=== PATIENT | male | born 1955 | race Caucasian/White ===

== ENCOUNTER 2017-02-21 18:01 | Emergency (ER) | payer OTHER ==
--- NOTE | 2017-02-21 18:23 | ED Physician Documentation ---
PD HPI UPPER EXT INJURY - Stated complaint Stated Complaint: L SHOULDER PAIN - Chief complaint Chief Complaint: Ext Problem - History obtained from History obtained from: Patient, Family - History of Present Illness Location: Left, Shoulder Type of injury: Fall (off ladder) Where injury occurred: Home Timing - onset: Today Timing - duration: Hours (1) Timing - details: Abrupt onset Pain level max: 7 Pain level now: 5 Improved by: Rest, Ice, Immobilization Worsened by: Moving, Palpating Associated symptoms: No: Weakness, Numbness, Tingling, Swelling Contributing factors: No: Anticoagulated, Prior ortho surgery Similar symptoms before: Has not had sx before Recently seen: Not recently seen Review of Systems Constitutional: denies: Fever, Chills GI: denies: Nausea, Vomiting Skin: denies: Rash Musculoskeletal: denies: Neck pain, Back pain Neurologic: denies: Focal weakness, Numbness, Confused, Altered mental status, Headache, Head injury PD PAST MEDICAL HISTORY - Past Medical History Past Medical History: No - Past Surgical History Past Surgical History: No - Present Medications Home Medications: Ambulatory Orders Medication Instructions Recorded Confirmed Hydrocodone/Acetaminophen 1 - 2 each PO Q6H PRN #14 tablet 02/21/17 [Hydrocodon-Acetaminophen 5-325] Ibuprofen [Motrin] 800 mg PO Q8H PRN #30 tablet 02/21/17 - Allergies Allergies/Adverse Reactions: Allergies Allergy/AdvReac Type Severity Reaction Status Date / Time No Known Drug Allergies Allergy Verified 02/21/17 18:11 - Living Situation Living Situation: reports: With family Living Arrangement: reports: At home - Social History Does the pt have substance abuse?: No - Family History Family history: reports: Non contributory PD ED PE NORMAL - Vitals Vital signs reviewed: Yes - General General: Alert and oriented X 3, No acute distress - Derm Derm: Warm and dry - Extremities Extremities: Other (L shoulder - no gross deformity. NVI. axillary nerve intact. Limited ROM 2/2 pain) - Neuro Neuro: Alert and oriented X 3 - Psych Psych: Normal mood, Normal affect Results - Vitals Vitals: Vital Signs - 24 hr 02/21/17 02/21/17 18:08 19:19 Temperature 36.6 C Heart Rate 69 71 Respiratory 14 16 Rate Blood Pressure 131/80 H 129/74 O2 Saturation 100 98 Oxygen O2 Source Room air - Rads (name of study) L shoulder xray Radiology: Prelim report reviewed, EMP read contemporaneously, See rad report ( Displaced acromion tip fracture. ) PD MEDICAL DECISION MAKING - ED course Complexity details: reviewed results, re-evaluated patient, considered differential, d/w patient, d/w family, d/w remediation bioanalytics consultant ED course: Patient is a 61-year-old male who presents to the emergency department after a fall onto the left shoulder. Appears to have a displaced acromium tip fracture. I discussed the case with Dr. Oliva, orthopedics who recommends a sling and follow-up in clinic in 1 week. Neurovascularly intact including the axillary nerve. Patient and family counseled regarding signs and symptoms for which I believe and urgent re-evaluation would be necessary. Patient with good understanding of and agreement to plan and is comfortable going home at this time This document was made in part using voice recognition software. While efforts are made to proofread this document, sound alike and grammatical errors may occur. Departure - Departure Disposition: 01 Home, Self Care Clinical Impression: Acromial fracture Qualifiers: Encounter type: initial encounter Fracture type: closed Fracture alignment: displaced Laterality: left Qualified Code(s): S42.122A - Displaced fracture of acromial process, left shoulder, initial encounter for closed fracture Condition: Good Instructions: ED Fx Upper Ext Follow-Up: [facility] [Provider Group] - Within 1 week Prescriptions: Hydrocodone/Acetaminophen [Hydrocodon-Acetaminophen 5-325] 1 - 2 each PO Q6H PRN #14 tablet PRN Reason: pain Ibuprofen [Motrin] 800 mg PO Q8H PRN #30 tablet PRN Reason: PAIN &/OR FEVER Comments: Return if you worsen. Keep the sling on until released by orthopedics. Do not drink alcohol or drive while on narcotic pain medicine. Note that many narcotic pain relievers also contain tylenol/acetaminophen. Please ensure that your total dose of acetaminophen from all sources does not exceed 3 grams (3000mg) per day. You may constipated on this medication, take a stool softener such as "Colace" twice a day while you are on it. Also recommend a [id number] laxative such as senna or MiraLAX any day that you do not have a bowel movement. If you received narcotic pain medication in the emergency department, do not drive or operate machinery for the next 24 hours. Your blood pressure was elevated today on check in to the emergency department. This does not mean that you have hypertension, it is a common phenomenon to check into the emergency department and have elevated blood pressure. I recommend that you see your primary care physician within the week to have it rechecked when you're feeling better. Discharge Date/Time: 02/21/17 19:30
--- NOTE | 2017-02-21 19:00 | XRAY Preliminary Report ---
Exam: XR Shoulder 3 View LT IMPRESSION: Displaced acromion tip fracture. [facility] SITE ID: [id number]
--- NOTE | 2017-02-21 19:02 | XRAY Report ---
EXAM: LEFT SHOULDER RADIOGRAPHY EXAM DATE: 02/21/2017 06:46 PM. CLINICAL HISTORY: Fall off ladder. Left shoulder pain. COMPARISON: None. TECHNIQUE: 3 views. FINDINGS: Bones: Displaced acromion tip fracture. No other traumatic or destructive bone abnormalities Joints: The glenohumeral and acromioclavicular joints are normal. Soft tissues: The visualized hemithorax is unremarkable. IMPRESSION: Displaced acromion tip fracture. [facility] Referring Provider Line: [phone] SITE ID: [id number]
[2017-02-21] MEDS ORDERED: HYDROcod/ACETAM 5/325 MG TABLET PO STA (19:04)
[2017-02-21] MEDS ORDERED: IBUPROFEN 800 MG TABLET PO STA (19:04)
[2017-02-21] MEDS ORDERED: HYDROcod/ACETAM 5/325 MG TABLET ONE (19:16)
[2017-02-21] MEDS ORDERED: IBUPROFEN 800 MG TABLET PO ONE (19:17)
[2017-02-21 19:20] VITALS: BP 129/74
== END 2017-02-21 19:30 | disposition home or self-care (01) ==
LOC: ED 18:01
DX: S42.122A Displaced fracture of acromial process, left shoulder, initial encounter for closed fracture (principal); W11.XXXA Fall on and from ladder, initial encounter; Y92.009 Unspecified place in unspecified non-institutional (private) residence as the place of occurrence of the external cause; R03.0 Elevated blood-pressure reading, without diagnosis of hypertension
CPT/HCPCS: 73030; 99283; 99284; A9270

== ENCOUNTER 2021-05-01 21:00 | Emergency (ER) | payer MEDICARE, BC ==
[2021-05-01 21:08] VITALS: BP 132/65
[2021-05-01] MEDS: PROPARACAINE 0.5% OPHTH DROPS 15 ML RIGHTEYE STA (21:29)
--- NOTE | 2021-05-01 21:51 | ED Physician Documentation ---
History of Present Illness - Stated complaint Stated Complaint: R EYE PX - Chief complaint Chief Complaint: Heent - Additonal information Additional information: 65-year-old male here for acute right eye pain that began yesterday in the afte rnoon. He was working on his air stream trailer drilling holes. Though he was wearing eye protection a flake of metal did fall into his eye. He has had some persistent pain, watering and generalized eye redness since. He does not wear glasses or contact lenses. Denies vision changes. Review of Systems Constitutional: reports: Reviewed and negative Eyes: reports: Discharge, Irritation Ears: reports: Reviewed and negative Nose: reports: Reviewed and negative Throat: reports: Reviewed and negative Cardiac: reports: Reviewed and negative Respiratory: reports: Reviewed and negative PD PAST MEDICAL HISTORY - Past Medical History Past Medical History: Yes Other Past Medical History: pyloric stenosis as an - Past Surgical History Past Surgical History: No - Present Medications Home Medications: Ambulatory Orders Medication Instructions Recorded Confirmed No Known Home Medications 05/01/21 05/01/21 - Allergies Allergies/Adverse Reactions: Allergies Allergy/AdvReac Type Severity Reaction Status Date / Time No Known Drug Allergies Allergy Verified 05/01/21 21:08 - Social History Does the pt smoke?: No Smoking Status: Never smoker Does the pt drink ETOH?: No Does the pt have substance abuse?: No - Immunizations Immunizations are current?: Yes - POLST Patient has POLST: No PD ED PE EXPANDED - Eyes Eyes: PERRL, Normal accommodation, EOMI, Normal eyelids, Conj/sclera FB (Tiny ofelia of metal seen at approximately 9-10 o'clock on the right eye at the margin of the iris.) Results - Vitals Vitals: Vital Signs - 24 hr 05/01/21 21:03 Temperature 36.1 C L Heart Rate 63 Respiratory 16 Rate Blood Pressure 132/65 H O2 Saturation 97 Oxygen O2 Source Room air Procedures - FB removal FB location: Other (EYE) FB removal preparation: Local anesthesia-specify (PROPARICAINE) Removal method: Other (BURRED 18 ga needle) FB removal aftercare: No complications, Patient tolerated well, Removed successfully PD MEDICAL DECISION MAKING - ED course Complexity details: re-evaluated patient, d/w patient ED course: 65-year-old male presents emergency department for evaluation of a foreign body which specifically is metal that is embedded at the margin of iris in the right eye sustained yesterday when working on his air stream trailer. Once patient was properly anesthetized with proparacaine I was able to use an 18-gauge Zuniga needle to pull the foreign body from his eye. Using a slit lamp on exam he does have a remaining rust ring. Patient will be started on erythromycin eye ointment and advised close follow-up with ophthalmology in the next 72 to 96 hours. Patient is scheduled for an MRI later this week. We discussed that it is important he tell the MRI screener that he was seen in the ER for concerns of metal foreign body in the right eye. Emergent return precautions discussed Departure - Departure Disposition: 01 Home, Self Care Clinical Impression: Corneal ulcer, right, Corneal rust ring of right eye Foreign body of right eye Qualifiers: Encounter type: initial encounter Qualified Code(s): T15.91XA - Foreign body on external eye, part unspecified, right eye, initial encounter Condition: Stable Record reviewed to determine appropriate education?: Yes Comments: Dwight, You were seen in the emergency department this evening as you had a ofelia of metal in your right eye. We were able to remove it. After removing the metal you do have a residual rust ring. This is an staining of the cornea after metal has been in it. To the best of our ability to determine in the emergency department, I believe that we have removed all of the metal but this is not yet certain. It is important that you follow-up with an supervising librarian in the next 72-96 hours. It is also very important that you notify your MRI screeners about this ED visit. Please apply the antibiotic ointment to your right eye 3 times a day for the next week. I would expect that the eye discomfort and discharge begins to improve over the next 24 to 48 hours. If worsening or you develop vision changes, please return i mmediately to the ER
[2021-05-01] MEDS: ERYTHROMYCIN OPHTH OINT 1 GM TUBE RIGHTEYE STA (21:59)
== END 2021-05-01 21:59 | disposition home or self-care (01) ==
LOC: ED 21:00
DX: H16.001 Unspecified corneal ulcer, right eye (principal); T15.91XA Foreign body on external eye, part unspecified, right eye, initial encounter; W45.8XXA Other foreign body or object entering through skin, initial encounter; W29.8XXA Contact with other powered hand tools and household machinery, initial encounter; Y93.H3 Activity, building and construction; Y92.89 Other specified places as the place of occurrence of the external cause
CPT/HCPCS: 65222; 99282; J3490